=== PATIENT | female | born 1980 | race Two or more races ===

== ENCOUNTER → 2023-03-28 | Day surgery (SDC) | payer OTHER ==
[~2023-03-28] MED LIST: ONDANSETRON HCL 2 MG/ML VIAL IV STA; ONDANSETRON HCL 2 MG/ML VIAL ONE; POVIDONE-IODINE 118 ML BOTT TOP ONE; TIROSINT100 MCG
== END | disposition home or self-care (01) ==
LOC: ADM 03-21 12:45 → CIR.AMB 05:15
PROVIDERS: ATTEND Obstetrics & Gynecology
DX: N93.8 Other specified abnormal uterine and vaginal bleeding (principal); N84.0 Polyp of corpus uteri; Z88.2 Allergy status to sulfonamides; Z88.1 Allergy status to other antibiotic agents; Z20.822 Contact with and (suspected) exposure to COVID-19

== ENCOUNTER 2023-09-06 11:45 | Inpatient (IN) | payer OTHER ==
[~2023-09-06] VITALS: Ht 172.7 cm; Wt 59.9 kg
[~2023-09-06 11:45] MED LIST changes: -ONDANSETRON HCL 2 MG/ML VIAL IV STA; -ONDANSETRON HCL 2 MG/ML VIAL ONE; -POVIDONE-IODINE 118 ML BOTT TOP ONE
[2023-09-12] MEDS ORDERED: CEFAZOLIN SODIUM 1,000 MG VIAL ONE (06:34)
[2023-09-12] MEDS ORDERED: FAMOTIDINE/PF 20 MG/2 ML VIAL ONE (08:10)
[2023-09-12] MEDS ORDERED: METOCLOPRAMIDE HCL 5 MG/ML VIAL ONE (08:10)
[2023-09-12] MEDS ORDERED: SURGIFLO APPLICATOR 1 EACH APPL TOP ONE (08:33)
[2023-09-12] MEDS ORDERED: HEMOSTATIC MATRIX 1 KIT KIT TOP ONE (08:33)
[2023-09-12] MEDS ORDERED: MEPERIDINE HCL/PF 50 MG/ML VIAL IV SCH (09:44)
[2023-09-12] MEDS ORDERED: PROMETHAZINE HCL 25 MG/ML AMPUL IV SCH (09:45)
[2023-09-12] MEDS ORDERED: IBUprofen 800 MG TABLET PO SCH (14:00)
[2023-09-12] MEDS ORDERED: SIMETHICONE 125 MG CAPSULE PO SCH (17:00)
[2023-09-12 18:34] LABS: HEMATOCRIT 34.9 % (36.0-45.00); HEMOGLOBIN 11.9 g/dL (12.0-15.00); MEAN CELL VOLUME 86.1 fL (80.00-100.00); MEAN CORPUSCULAR HEMOGLOBIN 29.4 pg (27.00-32.0); MEAN CORPUSCULAR HGB CONC 34.1 g/dl (32.0-36.0); PLATELET COUNT 143 K/uL (150-450); RED BLOOD COUNT 4.05 M/uL (4.00-6.00); RED CELL DISTRIBUTION WIDTH 18.2 % (11.5-14.5)
[2023-09-12] MEDS ORDERED: GABAPENTIN 300 MG CAPSULE PO SCH (21:00)
[2023-09-13] MEDS ORDERED: SIMETHICONE125 M1 PO (06:38)
[2023-09-13] MEDS ORDERED: CEFADROXIL500 MG PO (06:38)
[2023-09-13] MEDS ORDERED: IBUPROFEN800 MG PO (06:38)
[2023-09-13] MEDS ORDERED: GABAPENTIN300 MG PO (06:38)
== END 2023-09-13 09:54 | disposition home or self-care (01) | DRG 743 ==
LOC: O/R 09-12 05:30 → SURH 09-12 10:00 → OB/GYN 09-12 10:55 → SURH 09-12 11:45 → OB/GYN 09-13 09:54
PROVIDERS: ADMIT Obstetrics & Gynecology; ATTEND Obstetrics & Gynecology
PROC: 0UT9FZZ Resection of Uterus, Via Natural or Artificial Opening With Percutaneous Endoscopic Assistance (ICD-10-PCS; principal; 2023-09-12 10:00)
DX: D25.1 Intramural leiomyoma of uterus (principal); D25.2 Subserosal leiomyoma of uterus; Z20.822 Contact with and (suspected) exposure to COVID-19